=== PATIENT | male | born 1965 | race Caucasian/White ===

== ENCOUNTER 2019-04-01 07:42 | Day surgery (SDC) | payer BC ==
[~2019-04-01] VITALS: Ht 182.9 cm; Wt 108.8 kg
[2019-04-01] VITALS (9 sets, daily range): BP systolic 104–117; BP diastolic 58–85
[~2019-04-01 07:42] MED LIST: TEST200V10 SQ
[2019-04-01] MEDS ORDERED: diphenhydrAMINE 25mg capsule PO PRN (08:10)
[2019-04-01] MEDS ORDERED: normal saline 1,000 ML IV SCH ×2 (08:10→11:02)
[2019-04-01 08:44] LABS: BASOPHILS % (AUTO) 0.7 % (0-1); EOSINOPHILS # (AUTO) 0.1 X10'3 (0-0.9); EOSINOPHILS % (AUTO) 1.2 % (0-6); HEMOGLOBIN 15.4 g/dl (14.0-17.9); LYMPHOCYTES # (AUTO) 2.1 X10'3 (1.1-4.8); LYMPHOCYTES % (AUTO) 34.7 % (21-51); MEAN CORPUSCULAR HEMOGLOBIN 32.6 PG (27.0-31.0); MEAN CORPUSCULAR VOLUME 93.1 FL (78-98); MEAN PLATELET VOLUME 7.5 FL (7.4-10.4); MONOCYTES # (AUTO) 0.5 X10'3 (0-0.9); MONOCYTES % (AUTO) 7.9 % (2-12); NEUTROPHILS # (AUTO) 3.3 X10'3 (1.8-7.7); NEUTROPHILS % (AUTO) 55.5 % (42-75); PLATELET COUNT 150 X10'3 (140-440); RED BLOOD COUNT 4.73 X10'6 (4.70-6.10); RED CELL DISTRIBUTION WIDTH 12.9 % (11.5-14.5); WHITE BLOOD COUNT 5.9 X10'3 (4.5-11.0)
[2019-04-01 08:52] LABS: ALBUMIN 4.4 G/DL (3.4-5.0); ANION GAP 7 (8-16); BLOOD UREA NITROGEN 16 MG/DL (7-18); BUN/CREATININE RATIO 15.1 (5.4-32.0); CALCIUM 8.8 MG/DL (8.5-10.1); CHLORIDE 108 MMOL/L (99-107); CREATININE 1.06 MG/DL (0.60-1.10); GLUCOSE 95 MG/DL (70-104); MAGNESIUM 1.9 MG/DL (1.5-2.4); POTASSIUM 4.1 MMOL/L (3.5-5.1); SODIUM 144 MMOL/L (135-145); TOTAL CARBON DIOXIDE 28.7 MMOL/L (24-32); eGFR 73 ML/MIN
[2019-04-01] MEDS ORDERED: ROSU10TA2 PO (08:59)
[2019-04-01] MEDS ORDERED: LIDOcaine 1% (10mg/ml)w/preservative injection 20ml MDV ONE (09:57)
[2019-04-01] MEDS ORDERED: fentaNYL/PF 50MCG/1 ML 2ML syringe ONE (09:57)
[2019-04-01] MEDS ORDERED: iohexol 350MG/ML 100ml bottle IV ONE (09:57)
[2019-04-01] MEDS ORDERED: iohexol 350 MG/ML 50ML vial IV ONE (09:57)
[2019-04-01] MEDS ORDERED: midazolam 2 mg/2 ml injection ONE ×2 (09:57→10:21)
[2019-04-01] MEDS ORDERED: FLU VACC QS 2019-20 (6 MOS UP) 60 MCG/0.5 ML VIAL IMVAC ONE (10:22)
[2019-04-01] MEDS ORDERED: pneumococcal 23-VAL P-sac vacc 25 mcg/0.5ml vial IMVAC ONE (10:23)
[2019-04-01] MEDS ORDERED: HYDROcodone/acetaminophen 5mg/325mg tablet PO PRN (11:05)
[2019-04-01] MEDS ORDERED: ondansetron/PF 4mg/2ml inj IV PRN (11:05)
[2019-04-01] MEDS ORDERED: proCHLORperazine 10 MG/2 ml inj IV PRN (11:05)
[2019-04-01] MEDS ORDERED: HYDROcodone/acetaminophen 10/325mg tab PO PRN (11:05)
== END 2019-04-01 14:00 | disposition home or self-care (01) ==
LOC: SSTAY O 07:42
PROVIDERS: ATTEND Internal Medicine Cardiovascular Disease
DX: R07.9 Chest pain, unspecified (principal); I25.10 Atherosclerotic heart disease of native coronary artery without angina pectoris; E78.5 Hyperlipidemia, unspecified; Z23 Encounter for immunization; Z79.899 Other long term (current) drug therapy
CPT/HCPCS: 36415; 80048; 83735; 85025; 85610; 90471; 90732; 93005; 93458; 99152; C1769; C1894; J1644; J2001; J2250; J3010; J7030; Q0163; Q2037; Q9967; A4620; A6258; C1760